=== PATIENT | female | born 1990 | race Caucasian/White ===

== ENCOUNTER 2017-01-18 15:31 | Emergency (ER) | payer BC, OTHER ==
[2017-01-18 15:35] VITALS: TEMP 36.3; O2SAT 99
[2017-01-18 16:38] LABS: BLOOD UREA NITROGEN 11 mg/dl (7-18); BUN/CREATININE RATIO 12.6 (10-20); CARBON DIOXIDE 21 mmol/L (21-32); CHLORIDE 107 mmol/L (98-107); CREATININE 0.89 mg/dl (0.60-1.20); GLUCOSE 80 mg/dl (70-99); POTASSIUM 3.6 mmol/L (3.5-5.1); SODIUM 139 mmol/L (136-145)
[2017-01-18 17:08] LABS: PREG INTERNAL NEGATIVE QC NEG CLEAR BACKGROUND; PREG INTERNAL POSITIVE QC POS CONTROL LINE
[2017-01-18] MEDS ORDERED: BCPILLS PO (19:29)
[2017-01-18] MEDS ORDERED: BIOT1CAP8 PO (19:29)
--- NOTE | 2017-01-18 20:06 | EMERGENCY ROOM VISIT NOTE ---
History Report prepared by Avilaibe: Ny Zamarripa Under the Supervision of: Dr. Pop Booker D.O. First contact with patient: 15:32 Chief Complaint: ALCOHOL OVERDOSE Stated Complaint: ALCOHOL OVERDOSE History of Present Illness The patient is a 26 year old female who presents to the Emergency Room with complaints of an alcohol overdose. She was brought to the ED via EMS. EMS reports the patient was at the [facility] with her friends when she went to the bathroom and was gone for "a while". They went to get her from the bathroom and upon bringing her back to the [facility], she became unresponsive after sitting in a chair. EMS states they gave her a sternum rub and she just responded with a moan. Her friends denies any trauma or injuries to them. The patient did admit to EMS that she was drinking "rum and cokes" all day. Additional information is unable to be obtained secondary to the patients current intoxication. Source of History: patient, EMS History Limited By: intoxication Onset: FINANCE DIRECTOR Position: other (global) Quality: other (alcohol overdose) Timing: constant Review of Systems See HPI for pertinent positives & negatives. ROS is limited secondary to patients current condition. Past Medical & Surgical Medical Problems: (1) No significant past medical history Social History Alcohol Use: occasionally Drug Use: none Marital Status: single Housing Status: lives with family Occupation Status: employed Current/Historical Medications Scheduled Biotin (Biotin), 1 CAP PO DAILY Control Pills ( Control Pills), 1 TAB PO DAILY Allergies Coded Allergies: No Known Allergies (Unverified , 01/18/17) Physical Exam Vital Signs Date Time Temp Pulse Resp B/P (MAP) Pulse Ox O2 Delivery O2 Flow Rate FiO2 01/18/17 19:01 92 17 118/68 100 01/18/17 17:31 82 15 101/64 99 Room Air 01/18/17 17:01 85 15 109/74 98 01/18/17 16:31 81 13 113/68 100 01/18/17 16:01 64 15 98/65 98 01/18/17 15:45 113/66 01/18/17 15:45 58 01/18/17 15:35 36.3 71 19 102/68 96 Room Air 01/18/17 15:35 99 Room Air Physical Exam GENERAL: Patient is laying in bed, moans to sternal rub, smell of alcohol on breath, visibly intoxicated HEAD: normal cephalic, atraumatic EYE EXAM: Pupils are 4 mm and reactive bilaterally, conjunctiva injected and EOM 's grossly intact OROPHARYNX: mucous membranes are moist EARS: TMs clear b/l NECK: supple, no nuchal rigidity, no adenopathy, non-tender CHEST: stable to compression anteriorly and posteriorly LUNGS: clear to auscultation. Normal chest wall mechanics HEART: no murmurs, S1 normal and S2 normal ABDOMEN: abdomen soft, non-tender, normo-active bowel sounds, no masses, no rebound or guarding. PELVIS: stable to compression anteriorly and posteriorly BACK: Back is symmetrical on inspection and there is no deformity, no midline tenderness, no CVA tenderness. UPPER EXTREMITIES: full active and passive range of motion of all joints without tenderness to palpation LOWER EXTREMITIES: full active and passive range of motion of all joints without tenderness to palpation NEURO EXAM: Patient moans to a sternal rub, withdraws all extremities to pain, no focal deficits. Medical Decision & Procedures Laboratory Results 01/18/17 16:02 Test 01/18/17 16:02 Anion Gap 11.0 mmol/L (3-11) Estimated GFR () 105.1 Estimated GFR (Non- 90.7 BUN/Creatinine Ratio 12.6 (10-20) Calcium Level 9.0 mg/dl (8.5-10.1) Human Chorionic Gonadotropin, Qual NEG (NEG) Ethyl Alcohol mg/dL 197.0 mg/dl (0-3) Laboratory results per my review. ED Course ED COURSE: Vital signs were reviewed and showed normal vital signs The patients medical record was reviewed The above diagnostic studies were performed and reviewed. ED treatments and interventions as stated above. 1534: The patient was evaluated in room A9B. A complete history and physical examination was performed. 1927: Nursing informed me the patient is awake and sitting up and drinking water. Her parents are on the way. 1930: Upon reevaluation, the patient is resting comfortably and feeling well. She is awake, alert, talking and has no complaints. There is full active and passive range of motion of all extremities. I discussed my findings with the patient and she understands and agrees with the treatment plan. Based on the patients age, coexisting illnesses, exam and lab findings the decision to treat as an outpatient was made. The patient remained stable while under my care. The patient appeared well at the time of discharge. Medical Decision Differential diagnosis includes etiologies such as alcohol intoxication, toxicologic, infection, hypoglycemia, electrolyte abnormalities, cardiac sources , intracerebral event, neurologic, as well as others were entertained. Patient was a 26-year-old female who was found passed out sitting up in a chair by friends. He denied any history of trauma. Patient was brought in by EMS. CBC along with was negative. Alcohol was 200. Patient was monitored for 4.5 hours. She did and was following commands. She does not recall anything that happened. Repeat exam shows no tenderness. She is able to put together cohesive statements. Patient called mom who will take her home. Instructed not to drive for the next 12 hours. Discussed with Pt concerning signs and symptoms to watch out for. Pt was instructed to follow up with their PCP and discussed with the patient their option to return to the ED at anytime for persistent or worsening symptoms. The appropriate anticipatory guidance and out-patient management, including indications for return to the emergency department, were explained at length to the patient and understood. Medication Reconcilliation Current Medication List: was personally reviewed by me Blood Pressure Screening Patient's blood pressure: Normal blood pressure Blood pressure disposition: Did not require urgent referral Impression Primary Impression: Alcohol abuse Additional Impression: Alcohol intoxication Scribe Attestation The scribe's documentation has been prepared under my direction and personally reviewed by me in its entirety. I confirm that the note above accurately reflects all work, treatment, procedures, and medical decision making performed by me. Departure Information Dispostion Home / Self-Care Referrals No Doctor, Assigned (PCP) Patient Instructions Alcohol Abuse - [facility], [facility]: [employer] Students and Alcohol Related Visits, My [facility] Additional Instructions Please follow up with your primary care doctor with in the next 24 hours. Any worsening of your symptoms, please return to the ED immediately. This includes any fevers greater than 100.4, worsening pain, chest pain, shortness breath, persistent nausea, vomiting, unable to eat or drink, or any other concerning signs or symptoms from your standpoint. Problem Qualifiers Additional Impression: Alcohol intoxication Complication of substance-induced condition: uncomplicated Qualified Codes: F10.920 - Alcohol use, unspecified with intoxication, uncomplicated
[2017-01-18 20:34] VITALS: BP 117/71; PULSE 85; O2SAT 100
== END 2017-01-18 20:35 | disposition home or self-care (01) ==
LOC: EDBD 15:31 → C.EDA 15:33
DX: F10.129 Alcohol abuse with intoxication, unspecified (principal); Y90.6 Blood alcohol level of 120-199 mg/100 ml